=== PATIENT | female | born 1965 | race Asian ===

== ENCOUNTER 2016-11-24 20:05 | Emergency (ER) | payer OTHER ==
[~2016-11-24] VITALS: Ht 157.5 cm; Wt 60.1 kg
[2016-11-24 20:11] VITALS: BP 118/62; PULSE 84; RESP 12; TEMP 97.7; O2SAT 99
--- NOTE | 2016-11-24 21:12 | PD ---
HPI Chief Complaint: Abdominal Pain Time Seen by Provider: 21:04 Travel History International Travel<30 days: No Contact w/Intl Traveler<30days: No Traveled to known affect area: No History of Present Illness HPI PATIENT C/O RIGHT LOWER QUAD PAIN, [place], 12/04, NO ASSOC WITH N/V/CP/D/FEVER AT THIS POINT. PFSH Past Medical History LMP: 2 years Social History Tobacco Use: No Allergies-Medications (Allergen,Severity, Reaction): Coded Allergies: Penicillin (Verified Allergy, Severe, Swelling, 11/24/16) Sulfa (Verified Allergy, Unknown, Swelling, 11/24/16) Reported Meds & Prescriptions Reported Meds & Active Scripts Active Zofran Odt (Ondansetron Odt) 4 Mg Tab 4 Mg SL Q6HR PRN Review of Systems Except as stated in HPI: all other systems reviewed are Neg Gastrointestinal: Positive: Abdominal Pain Physical Exam Narrative GENERAL: SKIN: Warm and dry. HEAD: Atraumatic. Normocephalic. EYES: Pupils equal and round. No scleral icterus. No injection or drainage. ENT: No nasal bleeding or discharge. Mucous membranes pink and moist. NECK: Trachea midline. No JVD. CARDIOVASCULAR: Regular rate and rhythm. RESPIRATORY: No accessory muscle use. Clear to auscultation. Breath sounds equal bilaterally. GASTROINTESTINAL: Abdomen soft, non-tender, nondistended. RLQ TTP MILDLY MUSCULOSKELETAL: Extremities without clubbing, cyanosis, or edema. No obvious deformities. NEUROLOGICAL: Awake and alert. No obvious cranial nerve deficits. Motor grossly within normal limits. Five out of 5 muscle strength in the arms and legs. Normal speech. PSYCHIATRIC: Appropriate mood and affect; insight and judgment normal. Data Data Last Documented VS Vital Signs Date Time Temp Pulse Resp B/P Pulse Ox O2 Delivery O2 Flow Rate FiO2 11/25/16 01:45 97.9 75 15 124/62 100 Room Air Orders Complete Blood Count With Diff (11/24/16 21:08) Comprehensive Metabolic Panel (11/24/16 21:08) Lipase (11/24/16 21:08) Urinalysis - C+S If Indicated (11/24/16 21:08) Ct Abd/Pel W Iv Contrast(Rout) (11/24/16 21:08) Iv Access Insert/Monitor (11/24/16 21:08) Ecg Monitoring (7/31/17 21:08) Oximetry (11/24/16 21:08) NPO (11/24/16 21:08) Sodium Chloride 0.9% Flush (Ns Flush) (11/24/16 21:15) Ondansetron Inj (Zofran Inj) (11/25/16 02:00) Iohexol 350 Inj (Omnipaque 350 Inj) (11/25/16 02:15) Labs Laboratory Tests Test 11/24/16 11/24/16 21:25 21:45 White Blood Count 7.3 TH/MM3 Red Blood Count 3.85 MIL/MM3 Hemoglobin 12.1 GM/DL Hematocrit 35.5 % Mean Corpuscular Volume 92.4 FL Mean Corpuscular Hemoglobin 31.3 PG Mean Corpuscular Hemoglobin 33.9 % Concent Red Cell Distribution Width 11.9 % Platelet Count 268 TH/MM3 Mean Platelet Volume 7.1 FL Neutrophils (%) (Auto) 59.0 % Lymphocytes (%) (Auto) 29.3 % Monocytes (%) (Auto) 7.8 % Eosinophils (%) (Auto) 2.5 % Basophils (%) (Auto) 1.4 % Neutrophils # (Auto) 4.3 TH/MM3 Lymphocytes # (Auto) 2.1 TH/MM3 Monocytes # (Auto) 0.6 TH/MM3 Eosinophils # (Auto) 0.2 TH/MM3 Basophils # (Auto) 0.1 TH/MM3 CBC Comment DIFF FINAL Differential Comment Sodium Level 140 MEQ/L Potassium Level 4.0 MEQ/L Chloride Level 106 MEQ/L Carbon Dioxide Level 27.1 MEQ/L Anion Gap 7 MEQ/L Blood Urea Nitrogen 17 MG/DL Creatinine 0.76 MG/DL Estimat Glomerular Filtration 81 ML/MIN Rate Random Glucose 91 MG/DL Calcium Level 8.6 MG/DL Total Bilirubin 0.3 MG/DL Aspartate Amino Transf 19 U/L (AST/SGOT) Alanine Aminotransferase 29 U/L (ALT/SGPT) Alkaline Phosphatase 72 U/L Total Protein 7.2 GM/DL Albumin 3.6 GM/DL Lipase 441 U/L Urine Color YELLOW Urine Turbidity CLEAR Urine pH 6.0 Urine Specific [place] 1.010 Urine Protein NEG mg/dL Urine Glucose (UA) NEG mg/dL Urine Ketones NEG mg/dL Urine Occult Blood TRACE Urine Nitrite NEG Urine Bilirubin NEG Urine Leukocyte Esterase NEG Urine Squamous Epithelial 0-5 /hpf Cells Microscopic Urinalysis Comment CULT NOT INDICATED MDM Medical Decision Making Medical Screen Exam Complete: Yes Emergency Medical Condition: Yes Medical Record Reviewed: Yes Differential Diagnosis OVARIAN CYST V UTI V APPY V COLITIS V DIVERTIC Narrative Course PATIENT WAS EVALUATED AND UA NEG FOR UTI, LABS WNL WITH EXCEPTION OF MILD LIPASE ELEVATION BUT NOT TO THE LEvel c/w pancreatitis.....ct abd revealed mild ileus without obstruction and liver mass c/w hemangioma fully discussed with patient and advised follow up with pcp. pt understands and states she will f/u Diagnosis Primary Impression: RIGHT LOWER QUADRANT PAIN Scripts Ondansetron Odt (Zofran Odt)4 Mg Tab4 Mg SL Q6HR PRN (Nausea/Vomiting) #12 TAB Prov:Roly Temple MD 11/25/16 Disposition: 01 DISCHARGE HOME Condition: Stable Roly Temple MD Nov 24, 2016 21:12
[2016-11-24] MEDS ORDERED: SODIUM CHLORIDE 0.9% FLUSH 10 ML FLUSH IV FLUSH PRN (21:15)
[2016-11-24 21:41] LABS: AUTOMATED NEUTROPHIL # 4.3 TH/MM3 (1.8-7.7); BASOPHIL # 0.1 TH/MM3 (0-0.2); BASOPHIL % 1.4 % (0.0-2.0); EOSINOPHIL # 0.2 TH/MM3 (0-0.4); EOSINOPHIL % 2.5 % (0.0-4.0); HEMATOCRIT 35.5 % (35.0-46.0); HEMO FLAGS DIFF FINAL; LYMPH % 29.3 % (9.0-44.0); LYMPHOCYTE # 2.1 TH/MM3 (1.0-4.8); MEAN CELL VOLUME 92.4 FL (80.0-100.0); MEAN CORPUSCULAR HEMOGLOBIN 31.3 PG (27.0-34.0); MEAN CORPUSCULAR HGB CONC 33.9 % (32.0-36.0); MONO % 7.8 % (0.0-8.0); PLATELET COUNT 268 TH/MM3 (150-450); RED BLOOD COUNT 3.85 MIL/MM3 (4.00-5.30); RED CELL DISTRIBUTION WIDTH 11.9 % (11.6-17.2); WHITE BLOOD COUNT 7.3 TH/MM3 (4.0-11.0)
[2016-11-24 21:50] LABS: CHLORIDE 106 MEQ/L (98-107); SODIUM (NA) 140 MEQ/L (136-145)
[2016-11-24 21:54] LABS: ANION GAP 7 MEQ/L (5-15); BICARBONATE 27.1 MEQ/L (21.0-32.0); BLOOD UREA NITROGEN 17 MG/DL (7-18)
[2016-11-24 21:57] LABS: ALT (GPT) 29 U/L (10-53); AST (GOT) 19 U/L (15-37); GLOMERULAR FILTRATION RATE 81 ML/MIN (>89)
[2016-11-24 21:59] LABS: TOTAL BILIRUBIN ADULT 0.3 MG/DL (0.2-1.0)
[2016-11-24 22:00] LABS: ALKALINE PHOSPHATASE 72 U/L (45-117)
[2016-11-24 22:08] LABS: BLOOD, URINE TRACE (NEG); GLUCOSE,URINE NEG (NEG); KETONE, URINE NEG (NEG); NITRITE,URINE NEG (NEG)
[2016-11-24 22:25] VITALS: BP 112/70; PULSE 81; RESP 16; O2SAT 98
[2016-11-24 22:38] LABS: URINE COLOR YELLOW (YELLW/STRAW)
[2016-11-24 22:39] LABS: COMMENT (UR) CULT NOT INDICATED; CULTURE IF INDICATED CULT NOT INDICATED; SQUAMOUS EPITHELIAL CELL URINE 0-5 /hpf (0-5)
[2016-11-24 23:30] VITALS: BP 108/65; PULSE 81; RESP 17; O2SAT 100
[2016-11-25 00:30] VITALS: BP 107/70; PULSE 70; RESP 16; TEMP 97.8; O2SAT 98
--- NOTE | 2016-11-25 01:16 | RADRPT ---
EXAM DATE/TIME: 11/25/2016 00:37 [facility] COMPARISON: No previous studies available for comparison. INDICATIONS : Lower abdominal pain for 2 months. IV CONTRAST: 100 cc Omnipaque 350 (iohexol) IV ORAL CONTRAST: No oral contrast ingested. RADIATION DOSE: 6.41 CTDIvol (mGy) MEDICAL HISTORY : None SURGICAL HISTORY : None. ENCOUNTER: Initial ACUITY: 2 months PAIN SCALE: 7/10 LOCATION: abdomen TECHNIQUE: Volumetric scanning of the abdomen and pelvis was performed. Using automated exposure control and ad justment of the mA and/or kV according to patient size, radiation dose was kept as low as reasonably achievable to obtain optimal diagnostic quality images. DICOM format image data is available electro nically for review and comparison. FINDINGS: LOWER LUNGS: The visualized lower lungs are clear. LIVER: The liver is normal in size and shape with a 3 cm mass in the inferior right lobe with peripheral cau tanner right high density enhancement and low attenuation central portion. The gallbladder is unremarkab le. There is no dilation of the biliary tree. No calcified gallstones. SPLEEN: Normal size without lesion. PANCREAS: Within normal limits. KIDNEYS: Normal in size and shape. There is no mass, stone or hydronephrosis. ADRENAL GLANDS: Within normal limits. VASCULAR: There is no aortic aneurysm. BOWEL/MESENTERY: There is no free air or fluid. There are multiple loops of nondilated air-containing small bowel with several small air-fluid levels. Gas and stool is noted segmentally in the colon. There is no focal w all thickening or inflammatory change. ABDOMINAL WALL: Within normal limits. RETROPERITONEUM: There is no lymphadenopathy. BLADDER: No wall thickening or mass. REPRODUCTIVE: Within normal limits. INGUINAL: There is no lymphadenopathy or hernia. MUSCULOSKELETAL: Within normal limits for patient age. CONCLUSION: 1. Mildly nonspecific, nonobstructive bowel gas pattern which may represent a mild ileus or gastroent eritis. 2. 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 Bradford Baptiste MD on November 25, 2016 at 1:11 Board Certified Radiologist. This report was verified electronically.
[2016-11-25] MEDS ORDERED: ZOFR4TAB3 SL (01:40)
[2016-11-25 01:45] VITALS: BP 124/62; PULSE 75; RESP 15; TEMP 97.9; O2SAT 100
[2016-11-25] MEDS ORDERED: ONDANSETRON HCL 4 MG/2 ML VIAL IV PUSH ONE (02:00)
[2016-11-25] MEDS ORDERED: IOHEXOL 350 MG/ML 10 ML VIAL (for RAD DIAG) IV ONE (02:15)
== END 2016-11-25 02:12 | disposition home or self-care (01) ==
LOC: PHED 20:05
DX: R10.31 Right lower quadrant pain (principal); R16.0 Hepatomegaly, not elsewhere classified; K56.7 Ileus, unspecified; Z88.0 Allergy status to penicillin
CPT/HCPCS: 74177; 80053; 81001; 83690; 85025; 96374; 99285; J2405; Q9967

== ENCOUNTER 2017-04-25 20:45 | Observation (INO) | payer OTHER ==
[~2017-04-25 20:45] MED LIST: ASPI81TA23 PO; OPTI0.5D3 EACH EYE
[2017-04-25 20:54] VITALS: BP 136/61; PULSE 72; RESP 20; TEMP 97.7; O2SAT 98
[2017-04-25 21:25] VITALS: BP_SYST 125; BP_SYST 128; BP_DIAS 69; BP_DIAS 77; O2SAT 98
[2017-04-25] MEDS ORDERED: NITROGLYCERIN 0.4 MG SL 25 TABS/BTL SL ONE (21:30)
--- NOTE | 2017-04-25 21:31 | PD ---
HPI Chief Complaint: Chest Pain Time Seen by Provider: 21:08 Travel History International Travel<30 days: No Contact w/Intl Traveler<30days: No Traveled to known affect area: No History of Present Illness HPI 51yo F with no significant PMH presents to the ED with c/o midsternal chest pain. Said it started earlier this month but it was sharp and intermittent. For the last 2 weeks it has been constant. It is hard to describe and nonradiating. Denies any fever, cough, sob, n/v, abdominal pain, focal weakness or numbness. Bending down makes it feel worst. Said she has never had chest pain before and never had a cardiac work up. Denies any cig smoking or cocaine use. Denies any history of PE, DVT, hemoptysis, recent surgery. Pt took aspirin 162mg PO today. Currently chest pain is a 5 out of 10. PFSH Past Medical History Diminished Hearing: No Tetanus Vaccination: > 5 Years Influenza Vaccination: No ?: Not LMP: Apr 2014 Past Surgical History Other Surgery: Yes (maxillofacial) Social History Alcohol Use: No Tobacco Use: No Substance Use: No Allergies-Medications (Allergen,Severity, Reaction): Coded Allergies: penicillin G (Verified Allergy, Severe, Swelling, 04/23/17) Sulfa (Sulfonamide Antibiotics) (Verified Allergy, Unknown, Swelling, ) Reported Meds & Prescriptions Reported Meds & Active Scripts Active Reported Refresh Optive Eye Drops (Carboxymethylcellulos/Glycerin) 0.5 %-0.9 % Drops 1 Drop EACH EYE 4-5 TIMES A DAY PRN Aspirin EC (Aspirin) 81 Mg Tabdr 81 Mg PO DAILY Review of Systems Except as stated in HPI: all other systems reviewed are Neg Physical Exam Narrative GENERAL: 51yo F in mild distress. SKIN: Focused skin assessment warm/dry. HEAD: Atraumatic. Normocephalic. EYES: Pupils equal and round. No scleral icterus. No injection or drainage. ENT: No nasal bleeding or discharge. Mucous membranes pink and moist. NECK: Trachea midline. No JVD. CARDIOVASCULAR: Regular rate and rhythm. No murmur appreciated. RESPIRATORY: No accessory muscle use. Clear to auscultation. Breath sounds equal bilaterally. GASTROINTESTINAL: Abdomen soft, non-tender, nondistended. MUSCULOSKELETAL: No obvious deformities. No clubbing. No cyanosis. No edema. NEUROLOGICAL: Awake and alert. No obvious cranial nerve deficits. Motor grossly within normal limits. Normal speech. PSYCHIATRIC: Appropriate mood and affect; insight and judgment normal. Data Data Last Documented VS Vital Signs Date Time Temp Pulse Resp B/P (MAP) Pulse Ox O2 Delivery O2 Flow Rate FiO2 04/25/17 21:11 Room Air 04/25/17 20:54 97.7 72 20 136/61 (86) 98 Orders Orders Electrocardiogram (04/25/17 21:18) Basic Metabolic Panel (Bmp) (04/25/17 21:18) Complete Blood Count With Diff (04/25/17 21:18) Prothrombin Time / Inr (Pt) (04/25/17 21:18) Act Partial Throm Time (Ptt) (04/25/17 21:18) Troponin I (04/25/17 21:18) Chest, Single Ap (04/25/17 21:18) Ecg Monitoring (04/25/17 21:18) Bilateral Bp Monitoring (04/25/17 21:18) Iv Access Insert/Monitor (04/25/17 21:18) Oximetry (04/25/17 21:18) Nitroglycerin Sl (Nitrostat Sl) (04/25/17 21:30) Labs Laboratory Tests Test 04/25/17 21:05 White Blood Count 6.8 TH/MM3 Red Blood Count 4.14 MIL/MM3 Hemoglobin 12.5 GM/DL Hematocrit 38.8 % Mean Corpuscular Volume 93.7 FL Mean Corpuscular Hemoglobin 30.1 PG Mean Corpuscular Hemoglobin Concent 32.1 % Red Cell Distribution Width 11.8 % Platelet Count 290 TH/MM3 Mean Platelet Volume 7.0 FL Neutrophils (%) (Auto) 57.3 % Lymphocytes (%) (Auto) 31.5 % Monocytes (%) (Auto) 6.4 % Eosinophils (%) (Auto) 3.4 % Basophils (%) (Auto) 1.4 % Neutrophils # (Auto) 4.0 TH/MM3 Lymphocytes # (Auto) 2.1 TH/MM3 Monocytes # (Auto) 0.4 TH/MM3 Eosinophils # (Auto) 0.2 TH/MM3 Basophils # (Auto) 0.1 TH/MM3 CBC Comment DIFF FINAL Differential Comment Prothrombin Time 10.3 SEC Prothromb Time International Ratio 1.0 RATIO Activated Partial Thromboplast Time 26.7 SEC Blood Urea Nitrogen 13 MG/DL Creatinine 0.81 MG/DL Random Glucose 111 MG/DL Calcium Level 8.6 MG/DL Sodium Level 139 MEQ/L Potassium Level 3.5 MEQ/L Chloride Level 105 MEQ/L Carbon Dioxide Level 27.6 MEQ/L Anion Gap 6 MEQ/L Estimat Glomerular Filtration Rate 75 ML/MIN Troponin I LESS THAN 0.02 NG/ML MDM Medical Decision Making Medical Screen Exam Complete: Yes Emergency Medical Condition: Yes Interpretation(s) EKG: NSR 64bpm. Normal axis. 1mm ST segment elevation V2. Incomplete RBBB. Differential Diagnosis Musculoskeletal pain vs. ACS vs. costochondritis vs. GERD vs. anxiety Narrative Course 51yo F with atypical chest pain. Labs reviewed, no leukocytosis. H/H normal. BMP unremarkable. Troponin negative. CXR negative. Pt took aspirin. Pt given 1 sublingual nitro and chest pain went from 5 to 0. Chest pain is atypical in presentation. However, pt has never had chest pain and has never had any cardiac work up. She is post menopausal and 51years old and that is her only risk factor. Will admit to chest pain center for serial EKG and cardiac enzyme. Discussed with Dr. Ferguson and accepted to her service. Diagnosis Primary Impression: Chest pain Qualified Codes: R07.9 - Chest pain, unspecified Admitting Information Admitting Physician Requests: Xiomara Cobb DO Apr 25, 2017 21:31
[2017-04-25 21:36] LABS: BASOPHIL # 0.1 TH/MM3 (0-0.2); BASOPHIL % 1.4 % (0.0-2.0); EOSINOPHIL # 0.2 TH/MM3 (0-0.4); EOSINOPHIL % 3.4 % (0.0-4.0); HEMATOCRIT 38.8 % (35.0-46.0); HEMOGLOBIN 12.5 GM/DL (11.6-15.3); LYMPH % 31.5 % (9.0-44.0); LYMPHOCYTE # 2.1 TH/MM3 (1.0-4.8); MEAN CELL VOLUME 93.7 FL (80.0-100.0); MEAN CORPUSCULAR HEMOGLOBIN 30.1 PG (27.0-34.0); MEAN CORPUSCULAR HGB CONC 32.1 % (32.0-36.0); MONO % 6.4 % (0.0-8.0); MONOCYTE # 0.4 TH/MM3 (0-0.9); NEUT % 57.3 % (16.0-70.0); PLATELET COUNT 290 TH/MM3 (150-450); RED BLOOD COUNT 4.14 MIL/MM3 (4.00-5.30); RED CELL DISTRIBUTION WIDTH 11.8 % (11.6-17.2); WHITE BLOOD COUNT 6.8 TH/MM3 (4.0-11.0)
[2017-04-25 21:43] LABS: CHLORIDE 105 MEQ/L (98-107); SODIUM (NA) 139 MEQ/L (136-145)
[2017-04-25 21:46] LABS: BICARBONATE 27.6 MEQ/L (21.0-32.0); BLOOD UREA NITROGEN 13 MG/DL (7-18); CALCIUM 8.6 MG/DL (8.5-10.1); GLUCOSE,RANDOM 111 MG/DL (74-106)
--- NOTE | 2017-04-25 21:47 | RADRPT ---
EXAM DATE/TIME: 04/25/2017 21:34 [facility] COMPARISON: No previous studies available for comparison. INDICATIONS : Chest pain. MEDICAL HISTORY : None. SURGICAL HISTORY : None. ENCOUNTER: Initial ACUITY: 3 weeks PAIN SCORE: 5/10 LOCATION: Bilateral chest midline. FINDINGS: The lungs are clear without infiltrate, nodule, or mass. There is no appreciable pleural effusion fo r technique. Heart and mediastinum are unremarkable. CONCLUSION: No acute cardiopulmonary disease. Randa Gray MD on April 25, 2017 at 21:45 Board Certified Radiologist. This report was verified electronically.
[2017-04-25 21:49] LABS: PROTHROMBIN TIME - PATIENT 10.3 SEC (9.8-11.6)
[2017-04-25 21:50] LABS: CREATININE 0.81 MG/DL (0.50-1.00); GLOMERULAR FILTRATION RATE 75 ML/MIN (>89)
[2017-04-25 21:54] LABS: TROPONIN I LESS THAN 0.02 NG/ML (0.02-0.05)
[2017-04-25] MEDS ORDERED: SODIUM CHLORIDE 0.9% FLUSH 10 ML FLUSH IV FLUSH PRN (22:30)
[2017-04-25 22:31] VITALS: BP 122/74; PULSE 68; RESP 16; O2SAT 100
[2017-04-25 23:45] VITALS: BP 140/80; PULSE 62; RESP 18; TEMP 98.4; O2SAT 100
[2017-04-26 00:28] VITALS: PULSE 54
[2017-04-26 00:44] VITALS: BP 152/78; PULSE 66; RESP 16; TEMP 98.2; O2SAT 97
[2017-04-26] MEDS ORDERED: ACETAMINOPHEN 325 MG TAB PO ONE (01:15)
[2017-04-26 01:39] LABS: TROPONIN I LESS THAN 0.02 NG/ML (0.02-0.05)
[2017-04-26 04:10] LABS: TROPONIN I LESS THAN 0.02 NG/ML (0.02-0.05)
[2017-04-26 04:30] VITALS: BP 116/65; PULSE 76; RESP 20; TEMP 97; O2SAT 97
[2017-04-26 07:29] VITALS: PULSE 61
[2017-04-26 08:00] VITALS: BP 110/75; PULSE 73; RESP 16; TEMP 97.9; O2SAT 97
[2017-04-26] MEDS ORDERED: SODIUM CHLORIDE 0.9% FLUSH 10 ML FLUSH IV FLUSH SCH (09:00)
--- NOTE | 2017-04-26 09:26 | HHI.HP ---
[facility] Service [facility] Primary Care Physician Claudia Knutson MD Admission Diagnosis Chest pain Diagnoses: (1) Chest pain Diagnosis: Principal Chief Complaint: Chest pain Travel History International Travel<30 Days: No Contact w/Intl Traveler <30 Da: No Traveled to Known Affected Are: No History of Present Illness Written by Maureen Petty, acting as scribe for Dr. Jimenes on 04/26/17 at 09:24. Ms Olmos is a 51-year-old female patient with no known medical history who presented to the ED with complaints of chest pain. Patient states that a few weeks ago she had a pinching sensation in the midsternal chest, would intermittently come and go for about a week. 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 For the last two weeks she noticed this fluttering sensation on a daily basis, becoming more frequent. The sensation does radiate to the right hand and fingers as well as her neck and bilateral clavicles. Patient rates the pain at its worse a 5/10 on pain scale. Denies any associated diaphoresis. Does admit to mild nausea and shortness of breath with pain. Denies any recent fever, chills, abdominal pain, vomiting, diaphoresis or dysuria. At the time of assessment patient denies any continued chest pain. Does admit to some slight chest discomfort, that is very mild in nature. Review of Systems Constitutional: DENIES: Fever, Chills Eyes: DENIES: Diplopia Respiratory: COMPLAINS OF: Shortness of breath, DENIES: Cough, Wheezing Cardiovascular: COMPLAINS OF: Chest pain, Palpitations Gastrointestinal: COMPLAINS OF: Nausea, DENIES: Abdominal pain, Bloody stools, Constipation, Diarrhea, Vomiting Integumentary: DENIES: Rash Neurologic: DENIES: Abnormal gait Psychiatric: DENIES: Anxiety Except as stated in HPI: all other systems reviewed are Neg Past Family Social History Past Medical History Denies any other significant medical history. Past Surgical History Maxillofacial surgery Reported Medications Active Reported Refresh Optive Eye Drops (Carboxymethylcellulos/Glycerin) 0.5 %-0.9 % Drops 1 Drop EACH EYE 4-5 TIMES A DAY PRN Aspirin EC (Aspirin) 81 Mg Tabdr 81 Mg PO DAILY Allergies: Coded Allergies: penicillin G (Verified Allergy, Severe, Swelling, 04/23/17) Sulfa (Sulfonamide Antibiotics) (Verified Allergy, Unknown, Swelling, ) Active Ordered Medications Current Medications Medications (Trade) Dose Ordered Sig/Krunal Route Start Time Stop Time Status Last Admin (NS Flush) 2 ml UNSCH PRN IV FLUSH 04/25/17 22:30 (NS Flush) 2 ml BID IV FLUSH 04/26/17 09:00 Family History Both mother and father have hypertension. Mother had a pacemaker placement. Social History Denies any tobacco use. Denies any alcohol use. Denies any illicit drug use. Physical Exam Vital Signs Vital Signs Date Time Temp Pulse Resp B/P (MAP) Pulse Ox O2 Delivery O2 Flow Rate FiO2 04/26/17 08:00 97.9 73 16 110/75 (87) 97 04/26/17 04:30 97.0 76 20 116/65 (82) 97 04/26/17 00:44 98.2 66 16 152/78 (102) 97 04/26/17 00:28 54 04/26/17 00:03 04/25/17 23:45 98.4 62 18 140/80 (100) 100 Room Air 04/25/17 22:31 68 16 122/74 (90) 100 Room Air 04/25/17 21:25 98 04/25/17 21:25 128/77 (94) 125/69 (87) 04/25/17 21:11 Room Air 04/25/17 20:54 97.7 72 20 136/61 (86) 98 Physical Exam GENERAL: This is a well-nourished, well-developed patient, in no apparent distress. SKIN: No rashes, ecchymoses or lesions. Warm and dry. HEAD: Atraumatic. Normocephalic. EYES: Pupils equal round and reactive. Extraocular motions intact. No scleral icterus. No injection or drainage. ENT: Nose without bleeding, purulent drainage or septal hematoma. Throat without erythema, tonsillar hypertrophy or exudate. Uvula midline. Airway patent. NECK: Trachea midline. No JVD. Supple. CARDIOVASCULAR: Regular rate and rhythm without murmurs, gallops, or rubs. No reproducible chest pain. RESPIRATORY: Clear to auscultation. Breath sounds equal bilaterally. No wheezes , rales, or rhonchi. GASTROINTESTINAL: Abdomen soft, non-tender, nondistended. No guarding. MUSCULOSKELETAL: Extremities without clubbing, cyanosis, or edema. No joint tenderness, effusion, or edema noted. NEUROLOGICAL: Awake and alert. Cranial nerves II through XII intact. Motor and sensory grossly within normal limits. Five out of 5 muscle strength in all muscle groups. Normal speech. Laboratory Laboratory Tests Test 04/25/17 21:05 04/26/17 00:28 04/26/17 03:28 White Blood Count 6.8 Red Blood Count 4.14 Hemoglobin 12.5 Hematocrit 38.8 Mean Corpuscular Volume 93.7 Mean Corpuscular Hemoglobin 30.1 Mean Corpuscular Hemoglobin Concent 32.1 Red Cell Distribution Width 11.8 Platelet Count 290 Mean Platelet Volume 7.0 Neutrophils (%) (Auto) 57.3 Lymphocytes (%) (Auto) 31.5 Monocytes (%) (Auto) 6.4 Eosinophils (%) (Auto) 3.4 Basophils (%) (Auto) 1.4 Neutrophils # (Auto) 4.0 Lymphocytes # (Auto) 2.1 Monocytes # (Auto) 0.4 Eosinophils # (Auto) 0.2 Basophils # (Auto) 0.1 CBC Comment DIFF FINAL Differential Comment Prothrombin Time 10.3 Prothromb Time International Ratio 1.0 Activated Partial Thromboplast Time 26.7 Blood Urea Nitrogen 13 Creatinine 0.81 Random Glucose 111 Calcium Level 8.6 Sodium Level 139 Potassium Level 3.5 Chloride Level 105 Carbon Dioxide Level 27.6 Anion Gap 6 Estimat Glomerular Filtration Rate 75 Troponin I LESS THAN 0.02 LESS THAN 0.02 LESS THAN 0.02 Total Creatine Kinase 278 270 Creatine Kinase MB 1.7 1.6 Creatine Kinase MB % 0.6 0.6 Result Diagram: 04/25/17210404/25/172104 Imaging Last Impressions Chest X-Ray 04/25/172117 Signed Impressions: Service Date/Time: Tuesday, April 25, 2017 21:34 - CONCLUSION: No acute cardiopulmonary disease. Randa rGay MD Septic Shock Reassessment Septic shock perfusion: reassessment completed Caprini VTE Risk Assessment Caprini VTE Risk Assessment: No/Low Risk (score <= 1) Caprini Risk Assessment Model Point Value = 1 Point Value = 2 Point Value = 3 Point Value = 5 Age 41-60 Minor surgery BMI > 25 kg/m2 Swollen legs Varicose veins or History of unexplained or recurrent spontaneous Oral contraceptives or hormone replacement Sepsis (< 1 month) Serious lung disease, including pneumonia (< 1 month) Abnormal pulmonary function Acute myocardial infarction Congestive heart failure (< 1 month) History of inflammatory bowel disease Medical patient at bed rest Age 61-74 Arthroscopic surgery Major open surgery (> 45 min) Laparoscopic surgery (> 45 min) Malignancy Confined to bed (> 72 hours) Immobilizing plaster cast Central venous access Age >= 75 History of VTE Family history of VTE Factor V Leiden Prothrombin [id number] Lupus anticoagulant Anticardiolipin antibodies Elevated serum homocysteine Heparin-induced thrombocytopenia Other congenital or acquired thrombophilia Stroke (< 1 month) Elective arthroplasty Hip, pelvis, or leg fracture Acute spinal cord injury (< 1 month) Prophylaxis Regimen Total Risk Factor Score Risk Level Prophylaxis Regimen 0-1 Low Early ambulation 2 Moderate Order ONE of the following: *Sequential Compression Device (SCD) *Heparin 5000 units SQ BID 3-4 Higher Order ONE of the following medications: *Heparin 5000 units SQ TID *Enoxaparin/Lovenox 40 mg SQ daily (WT < 150 kg, CrCl > 30 mL/min) *Enoxaparin/Lovenox 30 mg SQ daily (WT < 150 kg, CrCl > 10-29 mL/min) *Enoxaparin/Lovenox 30 mg SQ BID (WT < 150 kg, CrCl > 30 mL/min) AND/OR *Sequential Compression Device (SCD) 5 or more Highest Order ONE of the following medications: *Heparin 5000 units SQ TID (Preferred with Epidurals) *Enoxaparin/Lovenox 40 mg SQ daily (WT < 150 kg, CrCl > 30 mL/min) *Enoxaparin/Lovenox 30 mg SQ daily (WT < 150 kg, CrCl > 10-29 mL/min) *Enoxaparin/Lovenox 30 mg SQ BID (WT < 150 kg, CrCl > 30 mL/min) AND *Sequential Compression Device (SCD) Assessment and Plan Problem List: (1) Chest pain ICD Code: R07.9 - Chest pain, unspecified Status: Acute Plan: Patient has been admitted to the chest pain center. Serial EKGs and serial Troponins have been ordered for ruling out ACS purposes. Tropnin trend flat. EKG reviewed showing NSR with controlled heart rate. Patient given Nitroglycerin SL in ED. Placed on daily aspirin. Continue cardiac telemetry, monitor for arrhythmias. CXR reviewed showing no acute disease. Clinically patient is comfortable on RA. Afebrile. WBC WNL. CBC and BMP reviewed essentially unremarkable. Patient does have a slight fluttering sensation in chest, 2/10 on pain scale. Will undergo a treadmill stress test to further rule out any ischaemia. Patient is stable at this time and agreeable to the plan. *Patient underwent a cardiac treadmill stress test. Images reviewed by Dr. Irvin, cardiology radiation physicist, who indicates no signs of ischemia. Patient updated about results and will follow up with PCP. If symptoms persist patient advised to return to the ED. Will discharge patient today. Assessment and Plan This note was transcribed by JULIETA Du. I, Dr. Nancy Jimenes personally performed the history, physical exam, and medical decision making; and confirmed the accuracy of the information in the transcribed note. Authenticated by Dr. Nancy Jimenes on 04/26/17 at 09:24. Problem Qualifiers (1) Chest pain: Qualified Codes: R07.9 - Chest pain, unspecified Maureen Petty Apr 26, 2017 09:26 Nancy Jimenes MD Apr 26, 2017 09:43
[2017-04-26] MEDS ORDERED: CARBOXYMETHYLCELL SOD 0.5% OPTH SOLN 15 ML BTL EACH EYE PRN (12:30)
--- NOTE | 2017-04-26 12:51 | EKG ---
Date Performed: 04/26/2017 Time Performed: 03:11:00 PTAGE: 51 years EKG: Sinus rhythm POSSIBLE RIGHT VENTRICULAR CONDUCTION DELAY BORDERLINE ECG PREVIOUS TRACING : 04/26/2017 00.11 Compared to prior tracing no significant change DOCTOR: Rodri Xavier Interpretating Date/Time 04/26/2017 12:50:35
--- NOTE | 2017-04-26 13:00 | EKG ---
Date Performed: 04/26/2017 Time Performed: 00:11:34 PTAGE: 51 years EKG: SINUS BRADYCARDIA POSSIBLE RIGHT VENTRICULAR CONDUCTION DELAY BORDERLINE ECG PREVIOUS TRACING : 04/25/2017 21.04 Compared to the previous tracing, rate has decreased, other [place] no change DOCTOR: Rodri Xavier Interpretating Date/Time 04/26/2017 12:58:28
--- NOTE | 2017-04-26 13:26 | TR ---
Date Performed: 04/26/2017 Time Performed: 12:54:59 DOCTOR: Christopher Irvin DRUG LIST: CLINICAL HISTORY: CHEST PAIN REASON FOR TEST: REASON FOR ENDING: OBSERVATION: CONCLUSION: Kash protocol performed, test stopped secondary to dizziness and fatigue. No change in chest discomfort. Good exercise tolerance. Good BP response. Recovery quick and unremarkable. Lemuel e nonspecific ST change in inferior leads. Maximum MT=179 Target HR Achieved=91.0% Maximum NO=007/70 Total Exercise Time=8:41 COMMENTS: Patient exercised using the Kash protocol. No electrocardiographic changes were seen to suggest ischemia. Hemodynamic response to exercise was normal. No significant arrhythmia was prese nt.
--- NOTE | 2017-04-26 13:26 | EKG ---
Date Performed: 04/25/2017 Time Performed: 21:04:56 PTAGE: 51 years EKG: Sinus rhythm POSSIBLE RIGHT VENTRICULAR CONDUCTION DELAY BORDERLINE ECG WARNING: DATA QUALITY MAY AFFECT INTERPRE TATION NO PREVIOUS TRACING DOCTOR: Rodri Xavier Interpretating Date/Time 04/26/2017 13:25:39
--- NOTE | 2017-04-26 13:44 | HHI.DCPOC ---
Discharge Care Plan Diagnosis: (1) Chest pain Your Health Problems Are: Chest Pain Goals to Promote Your Health * To prevent worsening of your condition and complications * To maintain your health at the optimal level Directions to Meet Your Goals Take your medications as prescribed Follow your dietary instruction Follow activity as directed Keep your appointments as scheduled Take your immunizations and boosters as scheduled If your symptoms worsen call your PCP, if no PCP go to Urgent Care Center or Emergency Room Smoking is Dangerous to Your Health. Avoid second hand smoke Call the 24-hour hour crisis hotline for domestic abuse at Maureen Petty Apr 26, 2017 13:44
[2017-04-27] MEDS ORDERED: ASPIRIN EC 81 MG TABEC PO SCH (09:00)
== END 2017-04-26 16:41 | disposition home or self-care (01) ==
LOC: PHED 20:45 → PHEDA 22:27 → PH3B 23:55
PROVIDERS: ADMIT Hospitalist; ATTEND Hospitalist
DX: R07.9 Chest pain, unspecified (principal); R94.31 Abnormal electrocardiogram [ECG] [EKG]; Z79.82 Long term (current) use of aspirin
CPT/HCPCS: 71010; 80048; 82550; 82552; 84484; 85025; 85610; 85730; 93005; 93017; 99285; G0378

== ENCOUNTER 2017-07-24 15:57 | Emergency (ER) | payer OTHER ==
[~2017-07-24] VITALS: Ht 157.5 cm; Wt 50.6 kg
[2017-07-24 16:18] VITALS: BP 116/69; PULSE 69; RESP 16; TEMP 97.8; O2SAT 97
--- NOTE | 2017-07-24 17:16 | RADRPT ---
EXAM DATE/TIME: 07/24/2017 16:58 [facility] COMPARISON: No previous studies available for comparison. INDICATIONS : Right foot, first digit pain. MEDICAL HISTORY : None. SURGICAL HISTORY : None. ENCOUNTER: Initial ACUITY: 1 day PAIN SCORE: 7/10 LOCATION: Right foot FINDINGS: Limited AP and lateral views of the right foot were obtained in standard 3 view study. There is a sma ll spur off the inferior calcaneus at the site of attachment of the plantar aponuerosis. Mild soft ti ssue prominence over the first metatarsal region. There is no acute fracture or malalignment. CONCLUSION: Mild soft tissue prominence over the first digit with no underlying bony abnormality. Bradford Baptiste MD on July 24, 2017 at 17:13 Board Certified Radiologist. This report was verified electronically.
--- NOTE | 2017-07-24 17:28 | PD ---
HPI Chief Complaint: Injury Time Seen by Provider: 16:57 Travel History International Travel<30 days: No Contact w/Intl Traveler<30days: No Traveled to known affect area: No History of Present Illness HPI This is a 52-year-old female here with right great toe pain times one day. She reports she can flex the toe while working in the yard. Pain is worse with weightbearing and range of motion. Slightly distress. No other injuries. PFSH Past Medical History Cancer: No Cardiovascular Problems: No Chest Pain: Yes Diminished Hearing: No Endocrine: No Genitourinary: No Immune Disorder: No Musculoskeletal: No Neurologic: No Psychiatric: No Reproductive: No Respiratory: No Influenza Vaccination: No ?: Not Past Surgical History Surgical History: No Previous Surgery Abdominal Surgery: No Cardiac Surgery: No Ear Surgery: No Endocrine Surgery: No Eye Surgery: No Genitourinary Surgery: No Gynecologic Surgery: No Oral Surgery: Yes (maxillofacial) Thoracic Surgery: No Other Surgery: Yes (maxillofacial) Social History Alcohol Use: No Tobacco Use: No Substance Use: No Allergies-Medications (Allergen,Severity, Reaction): Coded Allergies: penicillin G (Verified Allergy, Severe, Swelling, 07/24/17) Sulfa (Sulfonamide Antibiotics) (Verified Allergy, Unknown, Swelling, 07/24) Reported Meds & Prescriptions Reported Meds & Active Scripts Active No Active Prescriptions or Reported Medications Review of Systems Except as stated in HPI: all other systems reviewed are Neg General / Constitutional: No: Fever Eyes: No: Visual changes HENT: No: Headaches Cardiovascular: No: Chest Pain or Discomfort Respiratory: No: Shortness of Breath Gastrointestinal: No: Abdominal Pain Genitourinary: No: Dysuria Physical Exam Narrative GENERAL: Alert well-appearing 52-year-old female SKIN: Warm and dry. HEAD: Normocephalic. EYES: No injection or drainage. NECK: Supple MUSCULOSKELETAL: No cyanosis, or edema. Right foot: +TTP over the dorsal aspect of the great toe. No deformity. Full flexion causes pain. Normal sensation. Brisk cap refill. Data Data Last Documented VS Vital Signs Date Time Temp Pulse Resp B/P (MAP) Pulse Ox O2 Delivery O2 Flow Rate FiO2 07/24/17 16:18 97.8 69 16 116/69 (85) 97 Orders Orders Foot, Limited (2vws) (07/24/17 ) [facility] Medical Decision Making Medical Screen Exam Complete: Yes Emergency Medical Condition: Yes Differential Diagnosis Toe sprain, toe fracture, contusion Narrative Course 52-year-old female here with right great toe pain. The digit is neurovascularly intact. No deformity. X-ray is negative for fracture. Patient will be treated for a toe sprain Diagnosis Primary Impression: Toe sprain Qualified Codes: S93.509A - Unspecified sprain of unspecified toe(s), initial encounter Referrals: Primary Care Physician Additional Instructions: Ice and elevate the extremity Tylenol and ibuprofen for pain. Continue to wrap the toe for comfort Scripts No Active Prescriptions or Reported Meds Disposition: 01 DISCHARGE HOME Condition: Stable Awilda Miranda Jul 24, 2017 17:28
== END 2017-07-24 17:45 | disposition home or self-care (01) ==
LOC: PHEFT 15:57
DX: S93.501A Unspecified sprain of right great toe, initial encounter (principal); Z88.0 Allergy status to penicillin; Z88.2 Allergy status to sulfonamides; X50.9XXA Other and unspecified overexertion or strenuous movements or postures, initial encounter; Y92.096 Garden or yard of other non-institutional residence as the place of occurrence of the external cause
CPT/HCPCS: 73620; 99283; L3260